=== PATIENT | female | born 2000 | race Caucasian/White ===

== ENCOUNTER 2022-04-22 12:38 | Outpatient (CLI) | payer MEDICAID, SELFPAY ==
--- NOTE | 2022-04-22 11:59 | DI.RAD_ITS ---
Exam(s) XR KNEE RT 3V AP,LAT,RENUKA EXAM: XR KNEE RT 3V AP,LAT,RENUKA CLINICAL HISTORY: RT KNEE PAIN M25.561. TECHNIQUE: 2D digital imaging was performed. Three views. COMPARISON: No exams were available for comparison FINDINGS: BONES: No acute fracture is present. No bony destructive lesion is seen. JOINTS: The knee is normally aligned. No joint effusion is seen. SOFT TISSUE: Normal. IMPRESSION: Unremarkable radiographs of the right knee. DATA REPOSITORY: RADIATION DOSE DELIVERED:
== END 2022-04-22 12:58 ==
LOC: DI 12:38
PROVIDERS: Visit Provider Nurse Practitioner Family
DX: M25.561 Pain in right knee (principal)
CPT/HCPCS: 73562

== ENCOUNTER 2022-11-10 21:50 | Emergency (ER) | payer MEDICAID, SELFPAY ==
[2022-11-10 21:53] VITALS: BP 145/71; PULSE 47; RESP 14; TEMP 36.5; O2SAT 98
--- NOTE | 2022-11-10 22:16 | ED.GENADUL_ITS ---
Discharge Plan Disposition Patient Disposition: Home Discharge Details Chief Complaint: Headache Clinical Impression: Headache Primary Care Provider: Khai Alvarado ED Provider: Abhishek Jimenez Home Meds and New Rx's Prescriptions: No Action propranolol 80 mg Tablet 80 mg PO DAILY sumatriptan succinate 100 mg Tablet 100 mg PO ONCE sertraline 50 mg Tablet 50 mg PO DAILY Qulipta 60 mg Tablet 60 mg PO DAILY Discharge Instructions Instructions: General Headache (ED) Additional Instructions: Please follow-up with your neurologist. Please return to the emergency department for any worsening symptoms Stand Alone Forms: Work Release Medical Decision Making 22-year-old female history of migraine follows at [facility], presents with 2 to 3 days of gradual onset right-sided frontal headache radiating to temporal region and right jaw, afebrile nontoxic nonmeningeal, normal speech cranial nerves intact out of 5 strength no ataxia, likely recurrent migraine, lower suspicion for CVA or cerebral aneurysm, no evidence of meningitis or encephalitis, lower suspicion for carotid artery dissection or jugular venous thrombosis given history and physical, will trial migraine cocktail of dexamethasone sumatriptan and low-dose lorazepam, IV fluids close reassessment. 00: 2 2 patient feeling better after meds. Neurologically intact. Labs unremarkable. Home care instructions return precautions given HPI General Date/Time Provider Initiated Documentation: 11/10/22 21:58 . HPI Narrative: 22-year-old female history of migraines follows with [facility], presents with migraine over the past several days frontal in nature radiating to right jaw, gradual in onset, mild photophobia and phonophobia, no fevers Related Data Home Medications Medication Instructions Recorded Confirmed atogepant 60 mg tablet (Qulipta) 60 mg PO DAILY 11/10/22 11/10/22 propranolol 80 mg tablet 80 mg PO DAILY 11/10/22 11/10/22 sertraline 50 mg tablet 50 mg PO DAILY 11/10/22 11/10/22 sumatriptan succinate 100 mg tablet 100 mg PO ONCE 11/10/22 11/10/22 Allergies Allergy/AdvReac Type Severity Reaction Status Date / Time No Known Allergies Allergy Unverified 11/10/22 22:03 General Stated Complaint: Headache NATIVIDAD: 3 Review of Systems Narrative: Review of Systems Constitutional: negative Eyes: negative ENT: negative Cardiovascular: negative Respiratory: negative Gastrointestinal: negative : negative Musculoskeletal: negative Skin: negative Neurologic: Headache Psych: negative PFSH All Active Problems (Updated 11/11/22 @ 00:24 by Abhishek Jimenez MD) Headache (Acute) Social History Smoking/Tobacco Use Status: Never Smoking risk assessment performed?: Yes Alcohol Intake: never Drug use: Never Do you feel safe at home: Yes Do you feel safe in your relationship?: Yes Exam Narrative Exam Narrative: Physical Examination General: alert, awake, cooperative, resting comfortably, no acute distress HEENT: normocephalic, atraumatic; PERRL, EOM intact, conjunctiva normal; no nasal discharge; moist mucous membranes, oral and pharyngeal mucosa normal, tolerating secretions Neck: supple, trachea midline; full ROM Chest: normal to inspection Respiratory: normal respiratory effort, speaking in full sentences, clear to auscultation, no wheezing, rales or rhonchi Cardiac: regular rate, regular rhythm, S1S2 intact, no murmurs rubs or gallops GI: abdomen soft, non-tender, non-distended; no palpable mass or hepatosplenomegaly Skin: no lesions, rashes or trauma appreciated Neuro: AAOx3, normal speech, moving all extremities; cranial nerves II through XII intact, 5 out of 5 strength upper and lower extremities, normal speech no ataxia Psych: Appropriate mood and affect Course Vital Signs Vital signs: Vital Signs Temperature 36.5 C 11/10/22 21:53 Pulse 47 L 11/10/22 21:53 Respiratory Rate 14 11/10/22 21:53 Blood Pressure 145/71 H 11/10/22 21:53 Pulse Oximetry 98 11/10/22 21:53 Temperature 36.5 C 11/10/22 21:53 Temperature Source Oral 11/10/22 21:53 Pulse 47 L 11/10/22 21:53 Respiratory Rate 14 11/10/22 21:53 Respiratory Effort Normal, Non-Labored 11/10/22 22:07 Blood Pressure 145/71 H 11/10/22 21:53 Blood Pressure Position Sitting 11/10/22 21:53 Pulse Oximetry 98 11/10/22 21:53 Oxygen Delivery Method Room Air 11/10/22 21:53 Oxygen Flow Rate 0 11/10/22 21:53 Pain Level 8 11/10/22 22:09
[2022-11-10 22:49] LABS: Abs Immature Grans 0.04 10^3/uL (0.0-0.06); Absolute Basophil Count 0.04 10^3/uL (0.0-0.2); Absolute Eosinophil Count 0.19 10^3/uL (0.0-0.7); Absolute Lymphocyte Count 2.32 10^3/uL (1.2-3.4); Absolute Monocyte Count 0.94 10^3/uL (0.1-0.8); Basophils % 0.3; Eosinophils % 1.5; HCT 39.1 % (36.0-46.0); HGB 12.8 g/dL (11.2-15.7); Immature Grans % 0.3; Lymphocytes % 18.6; MCH 27.5 pg (27.0-33.0); MCHC 32.7 % (32.0-36.0); MCV 84 fL (80-95); MPV 8.6 fL (8.0-11.0); Monocytes % 7.5; Neutrophils % 71.8; Platelet Count 432 10^3/uL (130-400); RBC 4.66 10^6/uL (3.93-5.22); RDW 13.1 % (11.7-14.6); RDW-SD 39.5 fL; WBC 12.47 10^3/uL (4.4-10.8)
[2022-11-10 22:50] LABS: Absolute Neutrophil Count 8.95 10^3/uL (1.2-6.7)
[2022-11-10 23:08] LABS: ALT 17 U/L (14-59); AST 25 U/L (15-37); Albumin 4.4 g/dL (3.4-5.0); Alkaline Phosphatase 115 U/L (46-116); Anion Gap 8.6 mmol/L (3-11); BUN 8 mg/dL (7-18); Bilirubin, Total 0.6 mg/dL (0.2-1.0); CO2 27.4 mmol/L (21.0-32.0); CREATININE 0.7 mg/dL (0.55-1.02); Calcium 9.3 mg/dL (8.5-10.1); Chloride 100 mmol/L (98-107); Glucose 96 mg/dL (74-106); Magnesium 2.1 mg/dL (1.8-2.4); Sodium 136 mmol/L (136-145); Total Protein 8.2 g/dL (6.4-8.2)
[2022-11-10] MEDS: Normal Saline 1,000 ML 1000 ML IV (23:27)
[2022-11-10] MEDS: SUMAtriptan 6 MG/0.5 ML VIAL SC (23:28)
[2022-11-10] MEDS: LORazepam 2 MG/ML VIAL 0.5 MG IVP (23:28)
[2022-11-10] MEDS: Dexamethasone 10 MG/ML VIAL IVP (23:28)
[2022-11-11 00:27] VITALS: BP 138/68; PULSE 50; RESP 14; O2SAT 99
== END 2022-11-11 00:29 | disposition home or self-care (01) ==
PROVIDERS: Emergency Provider Emergency Medicine; PCP Family Medicine
DX: R51.9 Headache, unspecified (principal)
CPT/HCPCS: 80053; 81025; 99282; 83735; 85025; J1100; J2060

== ENCOUNTER 2024-04-25 08:09 | Emergency (ER) | payer SELFPAY ==
[2024-04-25 08:21] VITALS: BP 122/79; PULSE 57; RESP 18; TEMP 36.9; O2SAT 97
--- NOTE | 2024-04-25 08:39 | ED.GENADUL_ITS ---
Discharge Plan Disposition Patient Disposition: Home Condition: Stable Discharge Details Clinical Impression: Puncture wound of finger of left hand Primary Care Provider: Khai Alvarado ED Provider: Keke Vidales Home Meds and New Rx's Prescriptions: New cephalexin 500 mg capsule 500 mg PO BID 7 Days Qty: 14 0RF Rx Instructions: Please take 1 tablet twice daily for the next 7 days Continued propranolol 80 mg Tablet 80 mg PO DAILY sumatriptan succinate 100 mg Tablet 100 mg PO ONCE sertraline 50 mg Tablet 50 mg PO DAILY Qulipta 60 mg Tablet 60 mg PO DAILY Discharge Instructions Instructions: Taking care of cuts, scrapes, and puncture wounds, Wound Care ED Additional Instructions: You are given a tetanus booster today. Please keep clean and dry. May wash with running soap and water once daily. Keep covered when working. Allow to air dry at least 2 hours a day. If it starts to look red, swollen or warm please start the antibiotics twice daily with yogurt or a probiotic. Follow up with primary care provider in 3-5 days. Return to ED sooner if any worsening or concerns. Please take Tylenol or Ibuprofen with food every 4-6 hours as needed for pain and swelling. Stand Alone Forms: Work Release Referrals: Khai Alvarado [Primary Care Provider] - 2 weeks Discharge Data Discharge Date/Time-TO BE ENTERED AT DEPARTURE: 04/25/24 10:04 HPI General Mode of arrival: ambulatory . Date/Time Provider Initiated Documentation: 04/25/24 08:34 . Limitations to Documentation: no limitations . Information obtained by: patient, RN notes reviewed and old records reviewed . HPI Narrative: 24-year-old female presents to the ER with a chief complaint of left ring finger puncture wound which occurred while she was working at [email or web address]. She excellently punctured her finger with a meat thermometer, it did go through and through on the medial surface of her left ring finger. Last tetanus vaccination was 2014. Bleeding is controlled at this time. Related Data Home Medications ?Medication ?Instructions ?Recorded ?Confirmed atogepant 60 mg tablet (Qulipta) 60 mg PO DAILY 11/10/22 11/10/22 propranolol 80 mg tablet 80 mg PO DAILY 11/10/22 11/10/22 sertraline 50 mg tablet 50 mg PO DAILY 11/10/22 11/10/22 sumatriptan succinate 100 mg tablet 100 mg PO ONCE 11/10/22 11/10/22 cephalexin 500 mg capsule 500 mg PO BID puncture wound 7 04/25/24 days #14 caps Previous Rx's ?Medication ?Instructions ?Recorded cephalexin 500 mg capsule 500 mg PO BID puncture wound 7 04/25/24 days #14 caps Allergies Allergy/AdvReac Type Severity Reaction Status Date / Time No Known Allergies Allergy Unverified 11/10/22 22:03 General Stated Complaint: Laceration NATIVIDAD: 4 Review of Systems All systems reviewed & are unremarkable except as noted in HPI and below Integumentary/Breasts Skin/Breast: Reports wounds (Wound left ring finger distal tip) Exam Extrem Left upper extremity: hand Details: puncture wound (Left ring finger) Course Vital Signs Vital signs: Vital Signs Temperature 36.9 C 04/25/24 08:21 Pulse 57 L 04/25/24 08:21 Respiratory Rate 18 04/25/24 08:21 Blood Pressure 122/79 04/25/24 08:21 Pulse Oximetry 97 04/25/24 08:21 Temperature 36.9 C 04/25/24 08:21 Temperature Source Oral 04/25/24 08:21 Pulse 57 L 04/25/24 08:21 Respiratory Rate 18 04/25/24 08:21 Blood Pressure 122/79 04/25/24 08:21 Blood Pressure Position Sitting 04/25/24 08:21 Pulse Oximetry 97 04/25/24 08:21 Oxygen Delivery Method Room Air 04/25/24 08:21 Oxygen Flow Rate 0 04/25/24 08:21 Medical Decision Making 24-year-old female presents to the ER with a chief complaint of left ring finger puncture wound which occurred while she was working at [email or web address]. She ex cellently punctured her finger with a meat thermometer, it did go through and through on the medial surface of her left ring finger. Last tetanus vaccination was 2014. Bleeding is controlled at this time. Will give tetanus vaccination, wound care, will prescribe antibiotics if it begins to look infected in the next couple of days. Patient given home care, strict return instructions and follow-up care. This text was generated using [employer] system, please disregard any oddities of phrase or misspellings. Quality:SDOH Health Related Social Needs: No Data to Display PFSH All Active Problems (Updated 04/25/24 @ 08:41 by Keke Vidales NP) Puncture wound of finger of left hand (Acute) Social History Smoking/Tobacco Use Status: Never Smoking risk assessment performed?: Yes Alcohol Intake: never Drug use: Never Do you feel safe at home: Yes Do you feel safe in your relationship?: Yes
[2024-04-25] MEDS: Diph,Pertuss(Acell),Tet Vac/Pf 0.5 ML SYR IM (09:46)
[2024-04-25 09:51] VITALS: BP 121/82; PULSE 54; RESP 16; O2SAT 98
[2024-04-25] MEDS: Bacitracin 1 PACKET (10:03)
== END 2024-04-25 10:04 | disposition home or self-care (01) ==
PROVIDERS: Emergency Provider Registered Nurse Emergency; PCP Family Medicine
DX: S61.235A Puncture wound without foreign body of left ring finger without damage to nail, initial encounter (principal); Z23 Encounter for immunization; W26.8XXA Contact with other sharp object(s), not elsewhere classified, initial encounter; Y93.G1 Activity, food preparation and clean up; Y92.511 Restaurant or cafe as the place of occurrence of the external cause; Y99.0 Civilian activity done for income or pay
CPT/HCPCS: 90471; 90715; 99283

== ENCOUNTER 2024-04-28 11:19 | Emergency (ER) | payer MEDICAID, SELFPAY ==
[2024-04-28 11:32] VITALS: BP 119/73; PULSE 68; RESP 14; TEMP 37.3; O2SAT 95
--- NOTE | 2024-04-28 11:39 | W.ED.GENAD ---
Discharge Plan Disposition Patient Disposition: Home Discharge Details Clinical Impression: Headache, migraine Primary Care Provider: Khai Alvarado ED Provider: Angelica Hastings Home Meds and New Rx's Prescriptions: New dexamethasone 4 mg tablet 8 mg PO DAILY Qty: 2 0RF Rx Instructions: Take2 tablets by mouth x 1 for migraine Continued propranolol 80 mg Tablet 80 mg PO DAILY sumatriptan succinate 100 mg Tablet 100 mg PO ONCE Emgality Pen 120 mg/mL pen injector 120 mg SUBCUT QMONTH sertraline 200 mg capsule 200 mg PO DAILY Patient Comments: TAKE 1 CAPSULE BY MOUTH DAILY, SWALLOW WHOLE Discontinued sertraline 50 mg Tablet 50 mg PO DAILY Qulipta 60 mg Tablet 60 mg PO DAILY cephalexin 500 mg capsule 500 mg PO BID 7 Days Qty: 14 0RF Rx Instructions: Please take 1 tablet twice daily for the next 7 days Discharge Instructions Additional Instructions: Please call your primary care provider and neurologist to schedule follow-up appointments for reassessment after emergency department visit. Your workup today was reassuring. You were given a steroid called dexamethasone which will help decrease your risk of migraine headache recurring in the next couple of days. Continue taking medications as prescribed. Return to emergency care if develop new severe headaches, vision changes, balance problems, difficulty walking, uncontrollable vomiting, fevers associated with headaches, or if you are very worried and need to be rechecked again immediately. Referrals: Khai Alvarado [Primary Care Provider] - [facility] General Date/Time Provider Initiated Documentation: 04/28/24 11:36. [facility] Narrative: Erin is a 24year old female who presents to the emergency department today for evaluation of persistent migraine with dizziness. She reports that she has been unable to sleep for the last 2 nights due to stress, has tried melatonin and a sleep aid without any relief, so she was only able to sleep couple of hours. She has had a migraine for the last day and a half, says this is accompanied by dizziness and tingling feeling in her arms and legs, occasionally around her mouth as well. She says that the dizziness feels like lightheadedness and sometimes she has trouble keeping her balance. She denies associated fever/chills, vision changes, URI symptoms such as congestion/sore throat/cough, chest pain, shortness of breath, nausea/vomiting, change in bowel or bladder function. She does admit to decreased p.o. intake due to stress. She also reports that her right-sided TMJ discomfort has increased since onset. Past medical history is significant for TBI at age 21; chronic migraines are secondary to this. Physical exam reassuring. Patient is alert and oriented, no acute distress. PERRL, EOMs intact. Cranial nerves II through XII intact as tested. 5 out of 5 muscle strength to upper and lower extremities. Normal finger finger, rapid alternating movements, finger-nose, heel toe walk, Romberg. Moist mucous membranes. Full painless range of motion of neck. History and presentation most consistent with migraine headache likely triggered by insomnia due to anxiety, though there is the possibility for electrolyte imbalance or dehydration. No red flags in history or physical exam concerning for acute intracranial process requiring emergent diagnostic imaging at this time. I independently interpreted the following tests: CBC and BMP reassuring. EKG unremarkable, sinus bradycardia rate 55, normal intervals. Patient does have history of bradycardia on previous vital signs. While in the emergency department, Erin received IV Toradol, droperidol, and Benadryl. She said that this combination has worked for her well in the past. She experienced good pain relief with this, saying headache has gone from an 8 to a 4 and a dizziness and numbness/tingling have resolved. She does feel tired, says she feels like she can get some sleep and would like to go home. Dexamethasone ordered for migraine prevention. Overall workup today reassuring. Consistent with migraine headache exacerbated by insomnia/stress. Recommend close follow-up with PCP and neurology. Reviewed discharge instructions with patient, including symptomatic management and red flags indicating need for return to emergency care Related Data Home Medications ?Medication ?Instructions ?Recorded ?Confirmed propranolol 80 mg tablet 80 mg PO DAILY 11/10/22 04/28/24 sumatriptan succinate 100 mg tablet 100 mg PO ONCE 11/10/22 04/28/24 dexamethasone 4 mg tablet 8 mg (2 x 4 mg) PO DAILY #2 tabs 04/28/24 galcanezumab-gnlm 120 mg/mL 120 mg subcut QMONTH 04/28/24 04/28/24 subcutaneous pen injector (Emgality Pen) sertraline 200 mg capsule 200 mg PO DAILY 04/28/24 04/28/24 Previous Rx's ?Medication ?Instructions ?Recorded dexamethasone 4 mg tablet 8 mg (2 x 4 mg) PO DAILY #2 tabs 04/28/24 Allergies Allergy/AdvReac Type Severity Reaction Status Date / Time No Known Allergies Allergy Unverified 04/28/24 11:36 General Stated Complaint: GenMedical NATIVIDAD: 3 Review of Systems Narrative: See HPI Exam Const General: cooperative, healthy appearing, comfortable, well developed and well groomed Nutritional Appearance: average body habitus Orientation: alert and oriented x3 HENMT Head: normal to inspection Ears: hearing grossly normal bilaterally Face and sinus: normal facial exam Mouth: oral mucosae normal and moist mucous membranes Neck Neck: normal visual inspection, full ROM and no lymphadenopathy Resp Effort & Inspection: normal respiratory effort and able to speak in complete sentences Neuro General: patient alert, patient oriented x3, gait normal, tone normal, moves all extremities, no focal motor deficits and CN's II-XI intact bilaterally Cranial Nerves: CN's II-XI intact bilaterally, PERRL, EOM intact bilaterally, no nystagmus and facial strength normal Cognition: normal cognition Speech: speech normal Gait: normal gait Motor: muscle tone normal throughout and strength 5/5 throughout Sensory Exam: no sensory deficits noted Coordination: [id number]-[id number] test normal, [id number]-[id number] test normal, Romberg test normal, tandem gait normal, Does not sway with eyes open and rapid alternating movement UE normal Psych Appearance: grossly normal Mental Status: mental status grossly normal Speech and Movement: speech and movement normal Course Vital Signs Vital signs: Vital Signs Temperature 37.3 C 04/28/24 11:32 Pulse 68 04/28/24 11:32 Respiratory Rate 14 04/28/24 11:32 Blood Pressure 119/73 04/28/24 11:32 Pulse Oximetry 95 04/28/24 11:32 Temperature 37.3 C 04/28/24 11:32 Temperature Source Oral 04/28/24 11:32 Pulse 68 04/28/24 11:32 Respiratory Rate 14 04/28/24 11:32 Blood Pressure 119/73 04/28/24 11:32 Blood Pressure Position Sitting 04/28/24 11:32 Pulse Oximetry 95 04/28/24 11:32 Oxygen Delivery Method Room Air 04/28/24 11:32 Oxygen Flow Rate 0 04/28/24 11:32 Pain Level 9 04/28/24 11:32 Medical Decision Making Quality:SDOH Health Related Social Needs: No Data to Display PFSH All Active Problems (Updated 04/28/24 @ 13:49 by Angelica Chiu) Headache, migraine (Chronic) Puncture wound of finger of left hand (Acute) Social History Smoking/Tobacco Use Status: Never Smoking risk assessment performed?: Yes Alcohol Intake: never Drug use: Never Do you feel safe at home: Yes Do you feel safe in your relationship?: Yes
--- NOTE | 2024-04-28 11:45 | RT.EKG_ITS ---
APPROVED REPORT Exam: Resting ECG Reason for Exam: dizziness Patient Location: E HR:55 bpm ECG Measurements Heart Rate 55 AXIS IL 120 P 37 QRSd 102 QRS 56 QT 413 T 40 QTc 395 Conclusion Sinus bradycardia, rate 55 No interval abnormalities No STEMI No priors available for comparison
[2024-04-28] MEDS: diphenhydrAMINE 50 MG/ML VIAL IVP (12:40)
[2024-04-28] MEDS: Ketorolac 15 MG/ML VIAL IVP (12:40)
[2024-04-28] MEDS: Droperidol 5 MG/2 ML VIAL (12:41)
[2024-04-28 12:53] LABS: Abs Immature Grans 0.03 10^3/uL (0.0-0.06); Absolute Basophil Count 0.04 10^3/uL (0.0-0.2); Absolute Eosinophil Count 0.13 10^3/uL (0.0-0.7); Absolute Lymphocyte Count 1.39 10^3/uL (1.2-3.4); Absolute Monocyte Count 0.69 10^3/uL (0.1-0.8); Basophils % 0.4 %; Eosinophils % 1.2 %; HCT 41.3 % (36.0-46.0); HGB 13.8 g/dL (11.2-15.7); Immature Grans % 0.3 %; Lymphocytes % 12.8 %; MCH 27.8 pg (27.0-33.0); MCHC 33.4 % (32.0-36.0); MCV 83 fL (80-95); MPV 8.5 fL (8.0-11.0); Monocytes % 6.3 %; Platelet Count 448 10^3/uL (130-400); RBC 4.97 10^6/uL (3.93-5.22); RDW 12.3 % (11.7-14.6); RDW-SD 36.9 fL; WBC 10.89 10^3/uL (4.4-10.8)
[2024-04-28 13:21] LABS: Anion Gap 5.2 mmol/L (3-11); BUN 7 mg/dL (7-18); CO2 31.8 mmol/L (21.0-32.0); CREATININE 0.6 mg/dL (0.55-1.02); Calcium 9.6 mg/dL (8.5-10.1); Chloride 101 mmol/L (98-107); Estimated GFR 130.07 (mL/min/1.73m2); Glucose 104 mg/dL (74-106); Potassium 3.9 mmol/L (3.5-5.1); Sodium 138 mmol/L (136-145); TSH (W/Ref FT4) 1.69 uIU/mL (0.36-3.74)
[2024-04-28 14:21] VITALS: BP 97/61; PULSE 47; RESP 16; O2SAT 100
--- NOTE | 2024-04-28 14:23 | NUR.NOTE ---
Nursing Note: okay to DC with current VS per provider
--- NOTE | 2024-04-28 14:48 | NUR.NOTE ---
Nursing Note: This RN attempted to call pateint to notify of a script being sent to her preferred pharmacy. Her VM box was full.
--- NOTE | 2024-04-28 17:26 | NUR.NOTE ---
Nursing Note: this RN attempted to contact patient regarding medication that needs to be picked up at her preferred pharmacy
[2024-04-28 20:54] VITALS: BP 97/61; PULSE 47; RESP 15; RESP 16; TEMP 37.3; O2SAT 100
== END 2024-04-28 14:48 | disposition home or self-care (01) ==
PROVIDERS: Emergency Provider Nurse Practitioner Family; PCP Family Medicine
DX: G43.109 Migraine with aura, not intractable, without status migrainosus (principal)
CPT/HCPCS: 36415; 80048; 93005; 96374; 96375; 99284; 84443; 85025; 93010; J1200; J1790; J1885